=== PATIENT | male | born 1980 | race Caucasian/White ===

== ENCOUNTER 2018-03-31 22:42 | Emergency (ER) | payer SELFPAY ==
[~2018-03-31] VITALS: Ht 177.8 cm; Wt 85.4 kg
[2018-03-31 22:51] VITALS: BP 145/86; PULSE 81; RESP 18; Ht 177.8 cm; Wt 85.4 kg
== END 2018-04-01 00:21 | disposition left against medical advice (07) ==
LOC: E/R 22:42
DX: Z53.21 Procedure and treatment not carried out due to patient leaving prior to being seen by health care provider (principal)